=== PATIENT | male | born 1935 | race Caucasian/White ===

== ENCOUNTER 2024-11-27 14:27 | Inpatient (IN) | payer MEDICARE, BC ==
[~2024-11-27] VITALS: Ht 177.8 cm; Wt 71.4 kg
--- NOTE | 2024-11-27 15:13 | ED.PDOC ---
History of Present Illness HPI Comments 89 year old male with a Hx of CABG, A-Fib, and HTN, and is noted to be on Aspirin was BIBA for the c/c of a Nose bleed. Per EMS pt has been bleeding for approx 2x hour upon arriving to the ED. Pt states the he blew is nose "way to hard" causing the bleeding. Bleeding is noted to be extensive, and uncontrolled at this time. No other associated symptoms, modifiers, recent injuries or sick contacts present at this time. Chief Complaint: Nose Bleed Time Seen by MD: 15:09 Primary Care Provider: SOHAIL Reviewed Notes: Nurses Notes, Senior Physician Notes, Medications, Allergies Information Source: Patient Mode of Arrival: EMS Severity: Moderate Timing: Hours Duration: Since onset, Hours Prehospital treatment: Treatment Past Medical History PAST MEDICAL HISTORY: AFIB, HTN Past Medical History (Other): CABG Family History Family History: Unknown Social History Smoker: Non-Smoker Alcohol: Denies ETOH Use Drugs: Denies Drug Use Lives In: Home Constitutional: denies: chills, diaphoresis, fatigue, fever, malaise, sweats, weakness, others EENTM: denies: blurred vision, double vision, ear bleeding, ear discharge, ear drainage, ear pain, ear ringing, eye pain, eye redness, hearing loss, mouth pain, mouth swelling, nasal discharge, nose bleeding, nose congestion, nose pain, photophobia, tearing, throat pain, throat swelling, voice changes, others Respiratory: denies: cough, hemoptysis, orthopnea, SOB at rest, shortness of breath, SOB with excertion, stridor, wheezing, others Cardiovascular: denies: chest pain, dizzy spells, diaphoresis, Dyspnea on exertion, edema, irregular heart beat, left arm pain, lightheadedness, palpitations, PND, syncope, others Gastrointestinal: denies: abdomen distended, abdominal pain, blood streaked bowels, constipated, diarrhea, dysphagia, difficulty swallowing, hematemesis, melena, nausea, poor appetite, poor fluid intake, rectal bleeding, rectal pain, vomiting, others Genitourinary: denies: burning, dysuria, flank pain, frequency, hematuria, incontinence, penile discharge, penile sore, pain, testicle pain, testicle swelling, urgency, others Neurological: denies: dizziness, fainting, headache, left sided numbness, left sided weakness, numbness, paresthesia, pre-existing deficit, right sided numbness, right sided weakness, seizure, speech problems, tingling, tremors, weakness, others Musculoskeletal: denies: back pain, gout, joint pain, joint swelling, muscle pain, muscle stiffness, neck pain, others Integumetry: reports: wounds; denies: bruises, change in color, change in hair/nails, dryness, laceration, lesions, lumps, rash, others Allergic/Immunocompromised: denies: Difficulty Healing, Frequent Infections, Hives, Itching, others Hematologic/Lymphatic: denies: anemia, blood clots, easy bleeding, easy bruising, swollen glands, others Endocrine: denies: excessive hunger, excessive sweating, excessive thirst, excessive urination, flushing, intolerance to cold, intolerance to heat, unexplained weight gain, unexplained weight loss, others Psychiatric: denies: anxiety, bipolar disorder, depression, hopeless, panic disorder, schizophrenia, sleepless, suicidal, others All Other Systems: Reviewed and Negative Physical Exam General Appearance: Moderate Distress, Normal HEENT: Pharynx Normal, TMs Normal, Other (Bleeding from right nostril) Neck: Full Range of Motion, Non-Tender, Normal, Normal Inspection Respiratory: Chest Non-Tender, Lungs Clear, No Accessory Muscle Use, No Respiratory Distress, Normal Breath Sounds Cardiovascular: No Edema, No JVD, No Murmur, No Gallop, Normal Peripheral Pulses, Regular Rate/Rhythm Breast Exam: Deferred Gastrointestinal: No Organomegaly, Non Tender, No Pulsatile Mass, Normal Bowel Sounds, Soft Genitalia: Deferred Pelvic: Deferred Rectal: Deferred Extremities: No calf tenderness, Normal capillary refill, Normal inspection, Normal range of motion, Non-tender, No pedal edema Musculoskeletal : Apperance: Normal Neurologic: Alert, employment assistant II-XII nml as Tested, No Motor Deficits, Normal Affect, Normal Mood, No Sensory Deficits Cerebellar Function: NOT DONE Reflexes: NOT DONE Skin: Dry, Normal Color, Warm Peripheral Pulses: 3+ Radial (R), 3+ Radial (L) Lymphatic: No Adenopathy Was a procedure done? Was a procedure done?: Yes Sedation Sedation?: No Nasal Cautery and Pack Indicaton: Anterior epitaxis Silver nitrate: Right Hemostasis: Was obtained Location of packing: Right Packing: Expanding sponge Differential Dx Considerations may include: Nosebleed Electrolyte imbalance X-Ray, Labs, Meds, VS Vital Signs Date Time Temp Pulse Resp B/P (MAP) Pulse Ox O2 Delivery O2 Flow Rate FiO2 11/27/24 16:00 89 18 92 Room Air* 0 21 11/27/24 16:00 97.6 88 18 135/83 (100) 92 97.6 11/27/24 14:43 96.3 82 18 152/80 (104) 95 96.3 Lab Test 11/27/24 15:31 Range/Units White Blood Count 9.8 4.4-10.8 10^3/uL Red Blood Count 3.88 L 4.5-5.90 10^6/uL Hemoglobin 12.0 L 13.5-17.5 g/dL Hematocrit 35.3 L 41.0-53.0 % Mean Corpuscular Volume 91.1 80.0-100.0 fL Mean Corpuscular Hemoglobin 31.1 28.0-32.0 pg Mean Corpuscular Hemoglobin Concent 34.1 32.0-36.0 g/dL Red Cell Distribution Width 14.5 H 11.8-14.3 % Platelet Count 144 140-450 10^3/uL Mean Platelet Volume 8.0 6.9-10.8 fL Neutrophils (%) (Auto) 84.9 H 37.0-80.0 % Lymphocytes (%) (Auto) 9.6 L 10.0-50.0 % Monocytes (%) (Auto) 4.4 0.0-12.0 % Eosinophils (%) (Auto) 0.9 0.0-7.0 % Basophils (%) (Auto) 0.2 0.0-2.0 % Neutrophils # (Auto) 8.4 1.6-8.6 10 ^3/uL Lymphocytes # (Auto) 0.9 0.4-5.4 10 ^3/uL Monocytes # (Auto) 0.4 0-1.3 10 ^3/uL Eosinophils # (Auto) 0.1 0-0.8 10 ^3/uL Basophils # (Auto) 0 0-0.2 10 ^3/uL Nucleated Red Blood Cells 0.1 % Prothrombin Time 11.1 9.3-11.8 sec Prothrombin Time INR 1.05 0.9-1.15 Activated Partial Thromboplast Time 28.8 24.5-34.5 SEC Sodium Level 138 136-145 mmol/L Potassium Level 3.9 3.5-5.1 mmol/L Chloride Level 98 98-107 mmol/L Carbon Dioxide Level 32 H 20-31 mmol/L Anion Gap 8 5-15 Blood Urea Nitrogen 25 H 9-23 mg/dL Creatinine 1.06 0.700-1.30 mg/dL Glomerular Filtration Rate Calc 68 >90 mL/min BUN/Creatinine Ratio 23.6 H 10.0-20.0 Serum Glucose 164 H 74-106 mg/dL Calcium Level 10.4 8.7-10.4 mg/dL Troponin I High Sensitivity 15 </=54 ng/L Patient alert. Vitals stable. Nosebleed. Answering questions. Blood sugar elevated. Cardiac marker within normal limits. Neutrophils elevated. Blood pressure elevated. Possibly from stress from nosebleed. Pack the right side of the nose. Has still some leaking of serous fluid. Explained to the patient that he will be admitted. Continue monitoring. Time of 1ST Reevaluation: 16:11 Reevaluation 1ST: Unchanged Patient Education/Counseling: Diagnosis, Treatment, Need For Follow Up Family Education/Counseling: No Family Present SEPSIS Sepsis Screen Date sepsis recognized/suspect: Nov 27, 2024 Time Sepsis recognized/suspect: 1424 Recent Procedure: No On Antibiotic Therapy: No Respiratory Rate >20: No Heart Rate >90: No Temp<36 C (96.8 F) or >38.3 C: No SBP <90 or MAP <65 mmHG: No New Acute Mental Status Change: No Is the patient on CPAP, BIPAP,: No Physician Orders Chest Portable (11/27/24 15:09) Urinalysis (11/27/24 15:09) Vital Signs Date Time Temp Pulse Resp B/P (MAP) Pulse Ox O2 Delivery O2 Flow Rate FiO2 11/27/24 16:00 89 18 92 Room Air* 0 21 11/27/24 16:00 97.6 88 18 135/83 (100) 92 97.6 11/27/24 14:43 96.3 82 18 152/80 (104) 95 96.3 Laboratory Tests Test 11/27/24 15:31 White Blood Count 9.8 10^3/uL (4.4-10.8) Departure 1 Departure Time of Disposition: 16:12 Impression: Primary Impression: Uncontrolled diabetes mellitus Qualified Codes: E13.65 - Other specified diabetes mellitus with hyperglycemia Additional Impression: Nosebleed Disposition: 09 ADMITTED INPATIENT Admit to: Med Surg Condition: Guarded Critical Care Note Critical Care Time?: Yes (90 min-critical care time only) Critical care comment: Still slight bleeding even after nasal packing continue to monitor Stability Stability form required: No Heart Score Heart Score: Heart Score Response (Comments) Value History N/A 0 EKG N/A 0 Age N/A 0 Risk Factors N/A 0 Troponin N/A 0 Total 0 I personally scribed for ANA KING MD ([email or web address]) on 11/27/24 at 15:13. Electronically submitted by Sudhir Caba ([email or web address]). ANA KING MD Nov 27, 2024 15:13
[2024-11-27 15:47] LABS: Hematocrit 35.3 % (41.0-53.0); Hemoglobin 12.0 g/dL (13.5-17.5); Mean Corpuscular Hemoglobin 31.1 pg (28.0-32.0); Mean Corpuscular Volume 91.1 fL (80.0-100.0); Nucleated Red Blood Cells % 0.1 %
[2024-11-27 15:57] LABS: Potassium 3.9 mmol/L (3.5-5.1); Sodium 138 mmol/L (136-145)
[2024-11-27 15:58] LABS: Anion Gap 8 (5-15)
[2024-11-27 15:59] LABS: Calcium 10.4 mg/dL (8.7-10.4)
[2024-11-27 16:00] VITALS: PULSE 89; RESP 18; O2SAT 92
--- NOTE | 2024-11-27 16:00 | DVH ---
EXAM: XY CHEST PORTABLE HISTORY: sob COMPARISON: None TECHNIQUE: Portable upright AP view of the chest was performed. FINDINGS: No pneumothorax, consolidative infiltrates, or pulmonary edema. There is mild relative elevation of t he right hemidiaphragm. The heart is not enlarged. There are postoperative changes of median sternoto my. IMPRESSION: Postoperative changes of the heart without evidence of acute intrathoracic process.
[2024-11-27 16:03] LABS: Carbon Dioxide 32 mmol/L (20-31); Chloride 98 mmol/L (98-107)
[2024-11-27 16:04] LABS: BUN/Creatinine Ratio 23.6 (10.0-20.0)
[2024-11-27 16:05] LABS: Blood Urea Nitrogen 25 mg/dL (9-23); Glucose 164 mg/dL (74-106); INR 1.05 (0.9-1.15); Partial Thromboplastin Time 28.8 SEC (24.5-34.5); Prothrombin Time 11.1 sec (9.3-11.8)
[2024-11-27] MEDS: HYDROcodone-ACET 10/325MG TAB PO ONE (16:48)
[2024-11-27] MEDS: SODIUM CHLORIDE 0.9% 1,000 ML IV ONE (17:57)
[2024-11-27 19:30] VITALS: PULSE 91; RESP 17; O2SAT 97
[2024-11-27] MEDS ORDERED: hydrALAZINE HCL 20 MG/ML VL IV PRN (20:30)
[2024-11-27] MEDS ORDERED: ACETAMINOPHEN 325 MG TAB PO PRN (20:30)
[2024-11-27] MEDS ORDERED: DOCUSATE SOD 100 MG CAP PO PRN (20:30)
[2024-11-27] MEDS ORDERED: METO-158 PO (21:09)
[2024-11-27] MEDS ORDERED: AMIT10TA12 PO (21:09)
[2024-11-27] MEDS: SODIUM CHLORIDE 0.9% 1,000 ML IV SCH (21:19)
[2024-11-27] MEDS: HYDROcodone-ACET 5/325MG TAB PO PRN (21:21)
[2024-11-27] MEDS: ATORVASTATIN 20 MG TAB PO SCH (22:00)
--- NOTE | 2024-11-27 22:44 | DVHHP2 ---
History of Present Illness Reason for Visit: Acute respiratory distress History of Present Illness The patient is a 89-year-old male with past medical history of AFib, hypertension, thyroid disease, and hyperlipidemia who presented to [facility] ED with complaint of nosebleed and generalized weakness. Patient repo rts he has been bleeding for the past 2 hours when he blew is nose "way to hard" causing the bleeding. Bleeding is noted to be extensive, and uncontrolled at this time. Patient was seen and evaluated in the ED with respiratory distress, laboratory data shows WBC 9.8, hemoglobin 12.0, hematocrit 35.3, platelets 144, sodium 138, potassium 3.9, BUN 25, creatinine 1.06, glucose 164, hemoglobin A1c 5.6, calcium 10.4, troponin 15, blood pressure 123/79, heart rate 83, temperature 97.6 F, O2 saturation 92% on oxygen. Chest x-ray revealing postsurgical changes of the heart without evidence of acute intrathoracic process. Please see medication orders section in the computer. On my assessment, patient denied chest pain, no headache, no dizziness, no abdominal pain, no diarrhea, no nausea, no vomiting, no fever, no chills. Patient was admitted for further evaluation and medical management. Past Medical History AFIB, HTN, HLD, Thyroid disease. Past Surgical History CABG Family History Reviewed, noncontributory to the management of this case. Past Social History The patient lives at home, denies smoking, alcohol or illicit drugs abuse. Review of Systems Constitutional: Yes: Weakness; No: Fever, Chills, Sweats, Malaise, Other Eyes: No: Pain, Vision change, Conjunctivae inflammation, Eyelid inflammation, Other, Redness ENT: No: Ear pain, Ear discharge, Nose pain, Nose discharge, Nose congestion, Mouth pain, Mouth swelling, Throat pain, Throat swelling, Other Respiratory: Shortness of breath; No: Cough, Dry, SOB with excertion, Wheezing, Hemoptysis, Pleuritic Pain, Sputum, Wheezing, Other Cardiovascular: No: Chest Pain, Palpitations, Orthopnea, Paroxysmal Noc. Dyspne a, Edema, Lt Headedness, Other Gastrointestinal: No: Nausea, Vomiting, Abdominal Pain, Diarrhea, Constipation, Melena, Hematochezia, Other Genitourinary: No Dysuria, No Frequency, No Incontinence, No Hematuria, No Retention, No Other Musculoskeletal: No: other, neck pain, shoulder pain, arm pain, back pain, hand pain, leg pain, foot pain Skin: Other (Open wound); No: Rash, Lesions, Jaundice, Bruising Neurological: No: Weakness, Numbness, Incoordination, Change in speech, Confusion, Seizures, Other Allergies: Coded Allergies: NO KNOWN ALLERGIES (Unverified , 11/27/24) Medications Current Medications Medications Dose Ordered Sig/Barron Route Start Time Stop Time Status Last Admin Dose Admin Levothyroxine Sodium 25 mcg QAM@0600 PO 11/28/24 06:00 Hydralazine HCl 10 mg Q6HP PRN IV 11/27/24 20:30 Atorvastatin Calcium 20 mg HS PO 11/27/24 22:00 Sodium Chloride 1,000 ml @ 60 mls/hr [id number] IV 11/27/24 20:30 11/27/24 21:19 60 MLS/HR Acetaminophen/ Hydrocodone Bitart 1 tab Q4HP PRN PO 11/27/24 20:30 11/27/24 21:21 1 TAB Ondansetron HCl 4 mg Q4HP PRN IV 11/27/24 20:30 Docusate Sodium 100 mg BIDPRN PRN PO 11/27/24 20:30 Acetaminophen 650 mg Q6HP PRN PO 11/27/24 20:30 Exam Vital Signs Vital Signs Date Time Temp Pulse Resp B/P (MAP) Pulse Ox O2 Delivery O2 Flow Rate FiO2 11/27/24 18:00 97.3 83 16 95/59 (71) 92 97.3 11/27/24 16:00 Room Air* 0 21 General Appearance: Alert, Oriented X3, Cooperative HEENT: Atraumatic, PERRLA, EOMI, Mucous membr. moist/pink Respiratory: Normal air movement Cardiovascular: Regular rate, Normal S1, Normal S2, No murmurs Abdominal: Normal bowel sounds, Soft, No tenderness, No hepatospenomegaly, No masses Extremities: No clubbing, No cyanosis, No edema, Normal pulses, No tenderness/swelling Skin: No rashes, No significant lesion Neuro: Normal speech, Normal tone, Sensation intact, Cranial nerves 3-12 NL, Reflexes 2+, Other (Generalized weakness) Psych/Mental Status: Mental status NL, Mood NL Labs/Xrays Labs Test 11/27/24 15:31 Range/Units White Blood Count 9.8 4.4-10.8 10^3/uL Red Blood Count 3.88 L 4.5-5.90 10^6/uL Hemoglobin 12.0 L 13.5-17.5 g/dL Hematocrit 35.3 L 41.0-53.0 % Mean Corpuscular Volume 91.1 80.0-100.0 fL Mean Corpuscular Hemoglobin 31.1 28.0-32.0 pg Mean Corpuscular Hemoglobin Concent 34.1 32.0-36.0 g/dL Red Cell Distribution Width 14.5 H 11.8-14.3 % Platelet Count 144 140-450 10^3/uL Mean Platelet Volume 8.0 6.9-10.8 fL Neutrophils (%) (Auto) 84.9 H 37.0-80.0 % Lymphocytes (%) (Auto) 9.6 L 10.0-50.0 % Monocytes (%) (Auto) 4.4 0.0-12.0 % Eosinophils (%) (Auto) 0.9 0.0-7.0 % Basophils (%) (Auto) 0.2 0.0-2.0 % Neutrophils # (Auto) 8.4 1.6-8.6 10 ^3/uL Lymphocytes # (Auto) 0.9 0.4-5.4 10 ^3/uL Monocytes # (Auto) 0.4 0-1.3 10 ^3/uL Eosinophils # (Auto) 0.1 0-0.8 10 ^3/uL Basophils # (Auto) 0 0-0.2 10 ^3/uL Nucleated Red Blood Cells 0.1 % Prothrombin Time 11.1 9.3-11.8 sec Prothrombin Time INR 1.05 0.9-1.15 Activated Partial Thromboplast Time 28.8 24.5-34.5 SEC Sodium Level 138 136-145 mmol/L Potassium Level 3.9 3.5-5.1 mmol/L Chloride Level 98 98-107 mmol/L Carbon Dioxide Level 32 H 20-31 mmol/L Anion Gap 8 5-15 Blood Urea Nitrogen 25 H 9-23 mg/dL Creatinine 1.06 0.700-1.30 mg/dL Glomerular Filtration Rate Calc 68 >90 mL/min BUN/Creatinine Ratio 23.6 H 10.0-20.0 Serum Glucose 164 H 74-106 mg/dL Hemoglobin A1c 5.6 <5.7 % A1C Calcium Level 10.4 8.7-10.4 mg/dL Troponin I High Sensitivity 15 </=54 ng/L Thyroid Stimulating Hormone (TSH) 2.45 0.55-4.78 uIU/mL PATIENT: MILTON MARIE ACCT: [id number] UNIT: [id number] : 1935 LOC: ER ROOM / BED: / AGE / SEX: 89 / M ADM STATUS: REG ER SERVICE 1509 ORDERING PHYSICIAN: ANA KING MD PROCEDURE(s): CXRP - CHEST PORTABLE REASON: sob ORDER NUMBER(s): [id number], ACCESSION NUMBER(s): [id number] EXAM: XY CHEST PORTABLE HISTORY: sob COMPARISON: None TECHNIQUE: Portable upright AP view of the chest was performed. FINDINGS: No pneumothorax, consolidative infiltrates, or pulmonary edema. There is mild relative elevation of the right hemidiaphragm. The heart is not enlarged. There are postoperative changes of median sternotomy. IMPRESSION: Postoperative changes of the heart without evidence of acute intrathoracic process. Assessment/Plan Assessment/Plan Nosebleed Hyperglycemia Generalized weakness Acute respiratory distress Plan 1. Admit to telemetry unit 2. Breathing treatment 3. Pain control management 4. Management of fluids and electrolytes 5. Consultation for hospitalist 6. Diagnostic tests chest x-ray 7. DVT prophylaxis on SCDs 8. Repeat labs CBC, CMP in a.m. 9. Continue with current medical management 10. Treatment plan discussed with patient and RN. Patient verbalized understanding. Plan discussed with: Patient, Other (RN) My Orders Orders - JELENA CROWDER DNP Procedure Category Date Status Time Levothyroxine Tablet PHA 11/28/24 In Process (Synthroid Tablet) 06:00 Hydralazine Injection PHA 11/27/24 In Process (Apresoline Inject 20:30 Atorvastatin (Lipitor) PHA 11/27/24 In Process 22:00 Allergies ROB 11/27/24 In Process 20:28 Code Status CODE 11/27/24 Transmitted 20:28 Sodium Chloride 0.9% PHA 11/27/24 In Process 20:30 Oxygen Per Hour RT 11/27/24 Transmitted 20:28 Hydrocodone-Acet PHA 11/27/24 In Process 5/325mg Tab ([place] 20:30 Ondansetron Hcl PHA 11/27/24 In Process (Zofran) 20:30 Docusate Sodium PHA 11/27/24 In Process Capsule (Colace 20:30 Complete Blood Count LAB 11/28/24 Verified 04:00 Comprehensive LAB 11/28/24 Verified Metabolic Panel 04:00 Cardiac DIET 11/28/24 Transmitted Diet-2gna,Lofat,Lochol Breakfast Condition: Serious ROB 11/27/24 In Process 20:28 Acetaminophen Tablet PHA 11/27/24 In Process (Tylenol Tablet) 20:30 Bedrest With Bathroom ROB 11/27/24 In Process Privileg 20:28 Sequential ROB 11/27/24 In Process Compression Device Admit ADMIT 11/27/24 Verified 22:[address] [facility] 11/27/24 Verified Sublingual (Ntrostat 22:[address] [facility] 11/27/24 Verified Injection 22:45 Stat Ekg For Chest [facility] 11/27/24 Verified Pain 22:43 Notify Md Of Changes [facility] 11/27/24 Verified From Base 22:43 Keg Inspector For [facility] 11/27/24 Verified 24 Hours 22:43 Emergency Dysrhythmia [facility] 11/27/24 Verified Protocol 22:43 Rhythm Strips Once [facility] 11/27/24 Verified Every Shift 22:43 Oxygen By Nasal 11/27/24 Verified Cannula 22:43 Problem List: (1) Nosebleed (2) Hyperglycemia (3) Generalized weakness (4) Acute respiratory distress Date of Service: Nov 27, 2024 Billing Provider: JELENA CROWDER DNP Common Visit Codes: [id number] INP/OBS CARE (HIGH) JELENA CROWDER DNP Nov 27, 2024 22:44
[2024-11-27] MEDS ORDERED: MORPHINE SULFATE INJ 2 MG/ml SYRG IV PRN (22:45)
[2024-11-27] MEDS ORDERED: NITROGLYCERIN 0.4 MG SL TAB SL PRN (22:45)
[2024-11-27] MEDS ORDERED: LEVO25TA6 PO (22:48)
[2024-11-27] MEDS ORDERED: ROSU20TA14 PO (22:50)
[2024-11-27] MEDS ORDERED: TAMS1CAP25 PO (22:50)
[2024-11-27] MEDS: AMITRIPTYLINE HCL 10 MG TAB PO ONE (23:44)
[2024-11-28] VITALS (8 sets, daily range): BP systolic 98–139; BP diastolic 66–79; PULSE 79–100; RESP 16–18; TEMP 97.4–98.1; O2SAT 95–100
[2024-11-28] MEDS: LEVOTHYROXINE SODIUM 25 MCG TAB PO SCH (05:35)
[2024-11-28 06:38] LABS: Hematocrit 29.3 % (41.0-53.0); Hemoglobin 10.0 g/dL (13.5-17.5); Mean Corpuscular Hemoglobin 31.0 pg (28.0-32.0); Mean Corpuscular Volume 90.2 fL (80.0-100.0); Nucleated Red Blood Cells % 0.1 %
[2024-11-28 06:43] LABS: Albumin 3.3 g/dL (3.2-4.8); Alkaline Phosphatase 63 U/L (46-116); Anion Gap 6 (5-15); BUN/Creatinine Ratio 32.0 (10.0-20.0); Bilirubin, Total 0.4 mg/dL (0.2-1.0); Calcium 10.0 mg/dL (8.7-10.4); Carbon Dioxide 31 mmol/L (20-31); Chloride 101 mmol/L (98-107); Potassium 3.8 mmol/L (3.5-5.1); Sodium 138 mmol/L (136-145)
[2024-11-28 06:57] LABS: Alanine Aminotransferase < 9 U/L (7-40); Blood Urea Nitrogen 33 mg/dL (9-23); Glucose 134 mg/dL (74-106); Total Protein 5.2 g/dL (5.7-8.2)
[2024-11-28 10:34] LABS: Urine Protein, UAD Negative (Negative)
--- NOTE | 2024-11-28 13:29 | DVHPN2 ---
Subjective The patient is seen and examined at bedside. He complain of pain in his no with the packing is. Reviewed: Care Plan, H&P, Labs, Medications, Previous Orders, Radiology Changes from previous H/P or p: No Changes Eyes: No Pain, No Vision change, No Conjunctivae inflammation, No Eyelid inflammation, No Other, No Redness ENT: No Ear pain, No Ear discharge, No Nose pain, No Nose discharge, No Nose congestion, No Mouth pain, No Mouth swelling, No Throat pain, No Throat swelling, No Other Cardiovascular: No Chest Pain, No Palpitations, No Orthopnea, No Paroxysmal Noc. Dyspnea, No Edema, No Lt Headedness, No Other Respiratory: No Cough, No Dry; Shortness of breath; No SOB with excertion, No Wheezing, No Hemoptysis, No Pleuritic Pain, No Sputum, No Other Gastrointestinal: No Nausea, No Vomiting, No Abdominal Pain, No Diarrhea, No Constipation, No Melena, No Hematochezia, No Other Genitourinary: No Dysuria, No Frequency, No Incontinence, No Hematuria, No Retention, No Other Musculoskeletal: No other, No neck pain, No shoulder pain, No arm pain, No back pain, No hand pain, No leg pain, No foot pain Skin: No Rash, No Lesions, No Jaundice, No Bruising; Other (Open wound) Objective Vitals Vital Signs Date Time Temp Pulse Resp B/P (MAP) Pulse Ox O2 Delivery O2 Flow Rate FiO2 11/28/24 09:00 97.7 92 16 98/66 (77) 95 97.7 11/28/24 08:00 Room Air* 0 21 Intake/Output Intake and Output 11/28/24 07:00 Intake Total 1420 ml Output Total 125 ml Balance 1295 ml Intake Oral 300 ml IV Total 1120 ml Output Urine Total 125 ml General Appearance: Alert, Oriented X3, Cooperative, No acute distress HEENT: Atraumatic, PERRLA, EOMI, Mucous membr. moist/pink Lungs: Clear to auscultation, Normal air movement Cardiovascular: Regular rate, Normal S1, Normal S2, No murmurs, Gallops, Rubs Abdomen: Normal bowel sounds, Soft, No tenderness Neuro: Cranial nerves 3-12 NL Psych/Mental Status: Mental status NL Medications Current Medications Medications Dose Ordered Sig/Barron Route Start Time Stop Time Status Last Admin Dose Admin Levothyroxine Sodium 25 mcg QAM@0600 PO 11/28/24 06:00 11/28/24 05:35 25 MCG Hydralazine HCl 10 mg Q6HP PRN IV 11/27/24 20:30 Atorvastatin Calcium 20 mg HS PO 11/27/24 22:00 Sodium Chloride 1,000 ml @ 60 mls/hr [id number] IV 11/27/24 20:30 11/27/24 21:19 60 MLS/HR Acetaminophen/ Hydrocodone Bitart 1 tab Q4HP PRN PO 11/27/24 20:30 11/28/24 02:37 1 TAB Ondansetron HCl 4 mg Q4HP PRN IV 11/27/24 20:30 Docusate Sodium 100 mg BIDPRN PRN PO 11/27/24 20:30 Acetaminophen 650 mg Q6HP PRN PO 11/27/24 20:30 Nitroglycerin 0.4 mg Q5MINP PRN SL 11/27/24 22:45 Morphine Sulfate 2 mg Q30M PRN IV 11/27/24 22:45 Amitriptyline HCl 10 mg 2000 PO 11/28/24 20:00 Tamsulosin HCl 0.4 mg QPM PO 11/28/24 18:00 Laboratory Results Laboratory Tests 11/28/24 04:45 Chemistry Test 11/27/24 15:31 11/28/24 04:45 Calcium Level 10.4 mg/dL (8.7-10.4) 10.0 mg/dL (8.7-10.4) Albumin 3.3 g/dL (3.2-4.8) Total Protein 5.2 g/dL (5.7-8.2) L Coagulation Test 11/27/24 15:31 Prothrombin Time 11.1 sec (9.3-11.8) Prothrombin Time INR 1.05 (0.9-1.15) Activated Partial Thromboplast Time 28.8 SEC (24.5-34.5) LFT Test 11/28/24 04:45 Alanine Aminotransferase (ALT) < 9 U/L (7-40) Alkaline Phosphatase 63 U/L (46-116) Aspartate Amino Transferase (AST) 17 U/L (13-40) Total Bilirubin 0.4 mg/dL (0.2-1.0) HgA1c, TSH Test 11/27/24 15:31 Hemoglobin A1c 5.6 % A1C (<5.7) Thyroid Stimulating Hormone (TSH) 2.45 uIU/mL (0.55-4.78) Urinalysis Test 11/27/24 09:25 Urine Color Light-yellow (Yellow) Urine Clarity Clear (Clear) Urine pH 6.5 (5.0-9.0) Urine Specific [place] 1.013 (1.001-1.035) Urine Protein Negative (Negative) Urine Ketones Negative (Negative) Urine Blood Negative /uL (Negative) Urine Nitrite Negative (Negative) Urine Bilirubin Negative (Negative) Urine Urobilinogen Normal mg/dL (Negative) Urine Leukocyte Esterase Negative /uL (Negative) Urine RBC 1 /hpf (0 - 3) Urine Microscopic WBC < 1 /HPF (0-3) Urine Squamous Epithelial Cells None seen /hpf (<5) Urine Bacteria None seen /hpf (None Seen) Urine Glucose Trace mg/dL (Normal) Labs and/or images reviewed: Labs reviewed by me Assessment/Plan Assessment/Plan Nosebleed epistaxis Hyperglycemia Generalized weakness Acute respiratory distress Acute anemia DVT significant blood loss Continuing current management. Continuing to monitor packing. Removed when no longer bleeding. Patient takes aspirin at home due to coronary artery disease Patient can resume it if is not cause another bleeding. This medical document was created using an electronic medical record system with [employer] direct computerized dictation system. Although this document has been carefully reviewed, there may still be some phonetic and typographical errors. These areas are purely typographical due to imperfections of the software programs, and do not reflect any compromise in the patient's medical care. Plan discussed with: Patient Date of Service: Nov 28, 2024 Billing Provider: GIAN BAKER MD Common Visit Codes: [id number] INP/OBS CARE(HIGH) GIAN BAKER MD Nov 28, 2024 13:29
[2024-11-28] MEDS ORDERED: METO25TA93 PO (15:53)
[2024-11-28] MEDS: METOPROLOL SUCCINATE XL 50 MG TAB PO ONE (16:38)
[2024-11-28] MEDS: TAMSULOSIN HYDROCHLORIDE 0.4 MG CAP PO SCH (17:11)
[2024-11-28] MEDS: AMITRIPTYLINE HCL 10 MG TAB PO SCH (21:29)
[2024-11-29] VITALS (9 sets, daily range): BP systolic 124–157; BP diastolic 53–76; PULSE 74–89; RESP 16–17; TEMP 97.5–98.9; O2SAT 94–100
[2024-11-29] MEDS: METOPROLOL SUCCINATE XL 50 MG TAB PO SCH (08:48)
[2024-11-29] MEDS ORDERED: LATA0.008 EACHEYE (10:46)
--- NOTE | 2024-11-29 11:08 | DVHPN2 ---
Reviewed: Care Plan, H&P, Labs, Medications, Previous Orders, Radiology Changes from previous H/P or p: No Changes General: Per HPI Eyes: No Pain, No Vision change, No Conjunctivae inflammation, No Eyelid inflammation, No Other, No Redness ENT: No Ear pain, No Ear discharge, No Nose pain, No Nose discharge, No Nose congestion, No Mouth pain, No Mouth swelling, No Throat pain, No Throat swelling, No Other Cardiovascular: No Chest Pain, No Palpitations, No Orthopnea, No Paroxysmal Noc. Dyspnea, No Edema, No Lt Headedness, No Other Respiratory: No Cough, No Dry; Shortness of breath; No SOB with excertion, No Wheezing, No Hemoptysis, No Pleuritic Pain, No Sputum, No Other Gastrointestinal: No Nausea, No Vomiting, No Abdominal Pain, No Diarrhea, No Constipation, No Melena, No Hematochezia, No Other Genitourinary: No Dysuria, No Frequency, No Incontinence, No Hematuria, No Retention, No Other Musculoskeletal: No other, No neck pain, No shoulder pain, No arm pain, No back pain, No hand pain, No leg pain, No foot pain Skin: No Rash, No Lesions, No Jaundice, No Bruising; Other (Open wound) Objective Vitals Vital Signs Date Time Temp Pulse Resp B/P (MAP) Pulse Ox O2 Delivery O2 Flow Rate FiO2 11/29/24 09:27 97.5 78 17 153/64 (93) 98 97.5 11/29/24 08:02 Room Air* 0 21 Intake/Output Intake and Output 11/29/24 07:00 Intake Total 2580 ml Output Total 1425 ml Balance 1155 ml Intake Oral 1730 ml IV Total 850 ml Output Urine Total 1425 ml # Bowel Movements 1 Medications Current Medications Medications Dose Ordered Sig/Barron Route Start Time Stop Time Status Last Admin Dose Admin Levothyroxine Sodium 25 mcg QAM@0600 PO 11/28/24 06:00 11/29/24 05:01 25 MCG Hydralazine HCl 10 mg Q6HP PRN IV 11/27/24 20:30 Atorvastatin Calcium 20 mg HS PO 11/27/24 22:00 Sodium Chloride 1,000 ml @ 60 mls/hr [id number] IV 11/27/24 20:30 11/28/24 17:14 60 MLS/HR Acetaminophen/ Hydrocodone Bitart 1 tab Q4HP PRN PO 11/27/24 20:30 11/28/24 02:37 1 TAB Ondansetron HCl 4 mg Q4HP PRN IV 11/27/24 20:30 Docusate Sodium 100 mg BIDPRN PRN PO 11/27/24 20:30 Acetaminophen 650 mg Q6HP PRN PO 11/27/24 20:30 Nitroglycerin 0.4 mg Q5MINP PRN SL 11/27/24 22:45 Morphine Sulfate 2 mg Q30M PRN IV 11/27/24 22:45 Amitriptyline HCl 10 mg 2000 PO 11/28/24 20:00 11/28/24 21:29 10 MG Tamsulosin HCl 0.4 mg QPM PO 11/28/24 18:00 11/28/24 17:11 0.4 MG Metoprolol Succinate 25 mg DAILY PO 11/29/24 10:00 11/29/24 08:48 25 MG Laboratory Results Laboratory Tests 11/28/24 04:45 Urinalysis Test 11/27/24 09:25 Urine Color Light-yellow (Yellow) Urine Clarity Clear (Clear) Urine pH 6.5 (5.0-9.0) Urine Specific [place] 1.013 (1.001-1.035) Urine Protein Negative (Negative) Urine Ketones Negative (Negative) Urine Blood Negative /uL (Negative) Urine Nitrite Negative (Negative) Urine Bilirubin Negative (Negative) Urine Urobilinogen Normal mg/dL (Negative) Urine Leukocyte Esterase Negative /uL (Negative) Urine RBC 1 /hpf (0 - 3) Urine Microscopic WBC < 1 /HPF (0-3) Urine Squamous Epithelial Cells None seen /hpf (<5) Urine Bacteria None seen /hpf (None Seen) Urine Glucose Trace mg/dL (Normal) Assessment/Plan Assessment/Plan Nosebleed epistaxis Hyperglycemia Generalized weakness Acute respiratory distress Acute anemia DVT significant blood loss 11/29/2024: Discussed with patient and patient's daughter at bedside regarding plan of care. Patient's likely will have his nasal plugs removed in the morning Patient's likely be discharged in the morning after nasal packing removal and with no further acute bleeding Plan discussed with: Patient Date of Service: Nov 29, 2024 Billing Provider: LEON SCHAEFER DO Common Visit Codes: [id number] INP/OBS CARE(HIGH) LEON SCHAEFER DO Nov 29, 2024 11:08
[2024-11-29] MEDS: ONDANSETRON HCL 4 MG/2 ML VIAL IV PRN (17:17)
[2024-11-29] MEDS: PANTOPRAZOLE 40 MG TAB PO ONE (17:17)
[2024-11-29] MEDS: LATANOPROST 0.005 % OPTH(EYE) SOL 2.5ML EACHEYE SCH (21:15)
[2024-11-30] VITALS (10 sets, daily range): BP systolic 97–142; BP diastolic 41–80; PULSE 68–78; RESP 16–17; TEMP 36.6; O2SAT 72–100
[2024-11-30] MEDS: PANTOPRAZOLE 40 MG TAB PO SCH (06:07)
[2024-11-30] MEDS: TAMSULOSIN HYDROCHLORIDE 0.4 MG CAP PO SCH (08:35)
[2024-12-01 01:00] VITALS: BP 115/54; PULSE 78; RESP 17; TEMP 97.9; O2SAT 98
[2024-12-01 05:00] VITALS: BP 103/67; PULSE 71; RESP 18; TEMP 98.5; O2SAT 99
[2024-12-01 08:00] VITALS: PULSE 80
[2024-12-01 09:14] VITALS: BP 110/56; PULSE 89; RESP 17; TEMP 97.6; O2SAT 92
[2024-12-01 13:00] VITALS: BP 99/57; PULSE 83; RESP 19; TEMP 97.4; O2SAT 89
--- NOTE | 2024-12-01 15:19 | DVH ---
CHEST RADIOGRAPH Indication: Rule out aspiration pneumonia Technique: Single frontal view of the chest was obtained COMPARISON: XY CHEST PORTABLE on DOS: 11/27/24 FINDINGS: Lines and Tubes: Median sternotomy Lungs: Clear Pleura: No effusion. No pneumothorax. Cardiomediastinal contours: Unremarkable Bones: Unremarkable IMPRESSION: No acute disease.
[2024-12-01 17:16] VITALS: BP 107/47; PULSE 82; RESP 19; TEMP 97.1; O2SAT 91
--- NOTE | 2024-12-01 19:02 | DVHPN2 ---
Subjective This is a follow up on 89-year-old male with a known history of CAD status post three-vessel CABG, hypertension, dyslipidemia, hypothyroidism initially met with the hospital with a nosebleed status post nasal packing. Patient is currently tolerating diet might be able to discharge today. Reviewed: Care Plan, H&P, Labs, Medications, Previous Orders, Radiology Changes from previous H/P or p: No Changes General: Per HPI Eyes: No Pain, No Vision change, No Conjunctivae inflammation, No Eyelid inflammation, No Other, No Redness ENT: No Ear pain, No Ear discharge, No Nose pain, No Nose discharge, No Nose congestion, No Mouth pain, No Mouth swelling, No Throat pain, No Throat swelling, No Other Cardiovascular: No Chest Pain, No Palpitations, No Orthopnea, No Paroxysmal Noc. Dyspnea, No Edema, No Lt Headedness, No Other Respiratory: No Cough, No Dry; Shortness of breath; No SOB with excertion, No Wheezing, No Hemoptysis, No Pleuritic Pain, No Sputum, No Other Gastrointestinal: No Nausea, No Vomiting, No Abdominal Pain, No Diarrhea, No Constipation, No Melena, No Hematochezia, No Other Genitourinary: No Dysuria, No Frequency, No Incontinence, No Hematuria, No Retention, No Other Musculoskeletal: No other, No neck pain, No shoulder pain, No arm pain, No back pain, No hand pain, No leg pain, No foot pain Skin: No Rash, No Lesions, No Jaundice, No Bruising; Other (Open wound) Objective Vitals Vital Signs Date Time Temp Pulse Resp B/P (MAP) Pulse Ox O2 Delivery O2 Flow Rate FiO2 12/01/24 17:16 97.1 82 19 107/47 (67) 91 97.1 12/01/24 08:05 Room Air* 0 21 Intake/Output Intake and Output 12/01/24 06:59 Intake Total 400 ml Output Total 1100 ml Balance -700 ml Intake Oral 400 ml Output Urine Total 1100 ml # Bowel Movements 1 Exam HEENT pupils are reactive Neck is supple CV is S1-S2 regular rate and rhythm Respiratory diminished breath sound bases GI posterior bowel sound Extremity no edema SCAFFOLDER no motor deficit General Appearance: Alert, Oriented X3, Cooperative, No acute distress HEENT: Atraumatic, PERRLA, EOMI, Mucous membr. moist/pink Lungs: Clear to auscultation, Normal air movement Cardiovascular: Regular rate, Normal S1, Normal S2, No murmurs, Gallops, Rubs Abdomen: Normal bowel sounds, Soft, No tenderness Neuro: Cranial nerves 3-12 NL Psych/Mental Status: Mental status NL Laboratory Results Laboratory Tests 11/28/24 04:45 Urinalysis Test 11/27/24 09:25 Urine Color Light-yellow (Yellow) Urine Clarity Clear (Clear) Urine pH 6.5 (5.0-9.0) Urine Specific [place] 1.013 (1.001-1.035) Urine Protein Negative (Negative) Urine Ketones Negative (Negative) Urine Blood Negative /uL (Negative) Urine Nitrite Negative (Negative) Urine Bilirubin Negative (Negative) Urine Urobilinogen Normal mg/dL (Negative) Urine Leukocyte Esterase Negative /uL (Negative) Urine RBC 1 /hpf (0 - 3) Urine Microscopic WBC < 1 /HPF (0-3) Urine Squamous Epithelial Cells None seen /hpf (<5) Urine Bacteria None seen /hpf (None Seen) Urine Glucose Trace mg/dL (Normal) Assessment/Plan Assessment/Plan 1. Epistaxis resolved 2. Respiratory distress resolved currently on room air 3. CAD s/p CABG 4. Hypertension 5. Generalized weakness resolved 6. paroxysmal AFib currently only on aspirin outpatient to follow up with Cardiology regarding consideration of adequate or and NOAC 7. BPH 8. Hypothyroidism -remove nasal packing, once tolerates diet patient can be discharged. To be noted patient's discharge was held as he choked on his food, kept NPO for swallow evaluation. Plan discussed with: Patient My Orders Orders - DEBBIE CORREA MD Procedure Category Date Status Time Chest Xray 1 View XY 12/01/24 Resulted 14:22 Discharge DISCHARGE 12/01/24 Transmitted 18:59 Date of Service: Nov 30, 2024 Billing Provider: DEBBIE CORREA MD Common Visit Codes: [id number] INP/OBS CARE(MOD) DEBBIE CORREA MD Dec 01, 2024 19:02
--- NOTE | 2024-12-01 19:03 | DVHDS2 ---
Discharge Summary Date of Admission Nov 27, 2024 at 22:43 Date of Discharge: Dec 01, 2024 Labs/Diagnostic Data: Laboratory Results Test 12/01/24 08:06 11/28/24 04:45 11/27/24 15:31 11/27/24 09:25 POC Glucose 109 mg/dl (70-106) White Blood Count 6.9 10^3/uL (4.4-10.8) Red Blood Count 3.25 10^6/uL (4.5-5.90) Hemoglobin 10.0 g/dL (13.5-17.5) Hematocrit 29.3 % (41.0-53.0) Mean Corpuscular Volume 90.2 fL (80.0-100.0) Mean Corpuscular Hemoglobin 31.0 pg (28.0-32.0) Mean Corpuscular Hemoglobin Concent 34.3 g/dL (32.0-36.0) Red Cell Distribution Width 14.1 % (11.8-14.3) Platelet Count 125 10^3/uL (140-450) Mean Platelet Volume 8.4 fL (6.9-10.8) Neutrophils (%) (Auto) 79.7 % (37.0-80.0) Lymphocytes (%) (Auto) 13.0 % (10.0-50.0) Monocytes (%) (Auto) 6.9 % (0.0-12.0) Eosinophils (%) (Auto) 0.2 % (0.0-7.0) Basophils (%) (Auto) 0.2 % (0.0-2.0) Neutrophils # (Auto) 5.5 10 ^3/uL (1.6-8.6) Lymphocytes # (Auto) 0.9 10 ^3/uL (0.4-5.4) Monocytes # (Auto) 0.5 10 ^3/uL (0-1.3) Eosinophils # (Auto) 0 10 ^3/uL (0-0.8) Basophils # (Auto) 0 10 ^3/uL (0-0.2) Nucleated Red Blood Cells 0.1 % Sodium Level 138 mmol/L (136-145) Potassium Level 3.8 mmol/L (3.5-5.1) Chloride Level 101 mmol/L (98-107) Carbon Dioxide Level 31 mmol/L (20-31) Anion Gap 6 (5-15) Blood Urea Nitrogen 33 mg/dL (9-23) Creatinine 1.03 mg/dL (0.700-1.30) Glomerular Filtration Rate Calc 70 mL/min (>90) BUN/Creatinine Ratio 32.0 (10.0-20.0) Serum Glucose 134 mg/dL (74-106) Calcium Level 10.0 mg/dL (8.7-10.4) Total Bilirubin 0.4 mg/dL (0.2-1.0) Aspartate Amino Transferase (AST) 17 U/L (13-40) Alanine Aminotransferase (ALT) < 9 U/L (7-40) Alkaline Phosphatase 63 U/L (46-116) Total Protein 5.2 g/dL (5.7-8.2) Albumin 3.3 g/dL (3.2-4.8) Prothrombin Time 11.1 sec (9.3-11.8) Prothrombin Time INR 1.05 (0.9-1.15) Activated Partial Thromboplast Time 28.8 SEC (24.5-34.5) Hemoglobin A1c 5.6 % A1C (<5.7) Troponin I High Sensitivity 15 ng/L (</=54) Thyroid Stimulating Hormone (TSH) 2.45 uIU/mL (0.55-4.78) Urine Color Light-yellow (Yellow) Urine Clarity Clear (Clear) Urine pH 6.5 (5.0-9.0) Urine Specific [place] 1.013 (1.001-1.035) Urine Protein Negative (Negative) Urine Ketones Negative (Negative) Urine Blood Negative /uL (Negative) Urine Nitrite Negative (Negative) Urine Bilirubin Negative (Negative) Urine Urobilinogen Normal mg/dL (Negative) Urine Leukocyte Esterase Negative /uL (Negative) Urine RBC 1 /hpf (0 - 3) Urine Microscopic WBC < 1 /HPF (0-3) Urine Squamous Epithelial Cells None seen /hpf (<5) Urine Bacteria None seen /hpf (None Seen) Urine Glucose Trace mg/dL (Normal) Other Laboratory Tests 11/28/24 04:45 Brief Hx & Hospital Course: 89-year-old male with a known history of CAD status post three-vessel CABG, hypertension, dyslipidemia, paroxysmal AFib currently not on any anticoagulation, BPH, hypothyroidism initially presented with the hospital with a episodes Found to have active nosebleed status post nasal packing. Patient was being seen by hospitalist than I to cover. Yesterday patient was about to be discharged but then he choked on his food. Eventually discharge was held. Talked to the daughter at bedside in detail today once he tolerates night patient can be discharged. Patient was finally passed swallow evaluation by the bedside RN and currently tolerating diet without any choking. Patient is being discharged under stable condition with close follow up as an outpatient with the PCP. Condition at Discharge: Stable Final Diagnosis/Problems List 1. Epistaxis resolved 2. Respiratory distress resolved currently on room air 3. CAD s/p CABG next 4. Hypertension next 5. Generalized weakness resolved 6. paroxysmal AFib currently only on aspirin outpatient to follow up with Cardiology regarding consideration of adequate or and NOAC 7. BPH 8. Hypothyroidism Discharge Disposition: Home SNF Discharge Will this Physician continue t: No Discharge Instruct/Medications Diet: Cardiac 2g Na,low cholest Activity: No Restrictions, As Tolerated Follow Up/Referral: Follow up with the PCP in one week Follow up with the Cardiology in two weeks. Medications: Resume home medications. Scheduled Amitriptyline Hcl (Amitriptyline Hcl), 1 TAB PO QPM, (Reported) Latanoprost (Latanoprost), 1 DROP EACHEYE QPM, (Reported) Levothyroxine Sodium (Levothyroxine Sodium), 25 MCG PO QAM, (Reported) Metoprolol Succinate (Metoprolol Succinate Er), 1 TAB PO DAILY, (Reported) Miscellaneous Medications Rosuvastatin Calcium (Crestor), 20 MG PO, (Reported) Tamsulosin HCl (Tamsulosin Hydrochloride), 0.4 MG PO, (Reported) Discontinued Medications Metoprolol Tartrate (Metoprolol Tartrate), 50 MG PO, (Reported) Discharge Statement: "Patient was advised to return to the ER or call 911 if any headaches, dizziness, shortness of breath, chest pain, abdominal pain, bleeding, fevers, or worsening of medical condition. Patient was counseled about treatment plan, medications, possible side effects, patientverbalized understanding. All questions were answered to the best of my ability. This discharge took greater then 30 minutes in planning, reviewing documentation, counseling the patient, and discussing with other team members." ASSESSMENT ASSESSMENT Assessment 1. Epistaxis resolved 2. Respiratory distress resolved currently on room air 3. CAD s/p CABG next 4. Hypertension next 5. Generalized weakness resolved 6. paroxysmal AFib currently only on aspirin outpatient to follow up with Cardiology regarding consideration of adequate or and NOAC 7. BPH 8. Hypothyroidism Date of Service: Dec 01, 2024 Billing Provider: DEBBIE CORREA MD Common Visit Codes: [id number] DISCH DAY >30min DEBBIE CORREA MD Dec 01, 2024 19:03
== END 2024-12-01 18:11 | disposition home or self-care (01) | DRG 151 ==
LOC: ER 14:27 → OVERFLOW 22:43 → TELE-CENTR 11-28 02:01
PROVIDERS: ADMIT Internal Medicine; ATTEND Internal Medicine
PROC: 2Y41X5Z Packing of Nasal Region using Packing Material (ICD-10-PCS; principal; 2024-11-27)
DX: R04.0 Epistaxis (principal); N40.0 Benign prostatic hyperplasia without lower urinary tract symptoms; I10 Essential (primary) hypertension; D64.9 Anemia, unspecified; I48.0 Paroxysmal atrial fibrillation; E03.9 Hypothyroidism, unspecified; E11.65 Type 2 diabetes mellitus with hyperglycemia; I25.10 Atherosclerotic heart disease of native coronary artery without angina pectoris; E78.5 Hyperlipidemia, unspecified; Z95.1 Presence of aortocoronary bypass graft; Z79.899 Other long term (current) drug therapy; R06.03 Acute respiratory distress
CPT/HCPCS: 36415; 71045; 80048; 80053; 81001; 82962; 83036; 84443; 84484; 85025; 85610; 85730; 99291; 99292; G0378; J2405